=== PATIENT | female | born 1960 | race Hispanic/Latino ===

== ENCOUNTER 2017-02-11 07:04 | Day surgery (SDC) | payer SELFPAY ==
[~2017-02-11] VITALS: Ht 165.1 cm; Wt 83.5 kg
[~2017-02-11 07:04] MED LIST: ASPIRIN ADULT L81 MG PO; ASPIRIN CHEWABL81 MG PO; ASPIRIN EC81 MG PO; ATENOLOL25 MG PO; BACTRIM DS1 TAB OR; BP MEDICATION; CIPRO XR500 MG PO; DIABETIC PILL; GLIPIZIDE ER10 M1; GLIPIZIDE ER10 M1 PO; GLIPIZIDE10 MG PO; KEFLEX250 MG OR; LORTAB 5 OR; LORTAB 7.57.5 MG PO; LOSARTAN POT50 MG PO; MICARDIS40 MG OR; NAPROSYN375 MG PO; SIMVASTATIN20 MG PO; ULTRAM50 M1 PO; [UNRECOGNIZED DRUG - REMARK]
[2017-02-11] MEDS ORDERED: PERCOCET1 TA2 PO (09:10)
[2017-02-11 10:26] VITALS: BP 125/62
== END 2017-02-11 10:20 | disposition home or self-care (01) | DRG 419 ==
LOC: ORM 07:04
PROVIDERS: ATTEND Surgery
PROC: 0FT44ZZ Resection of Gallbladder, Percutaneous Endoscopic Approach (ICD-10-PCS; principal; 2017-02-11)
PROC: BF001ZZ Plain Radiography of Bile Ducts using Low Osmolar Contrast (ICD-10-PCS; 2017-02-11)
DX: K80.10 Calculus of gallbladder with chronic cholecystitis without obstruction (principal); I10 Essential (primary) hypertension; E11.9 Type 2 diabetes mellitus without complications
CPT/HCPCS: J2710; Q9967

== ENCOUNTER 2018-03-02 11:11 | Emergency (ER) | payer SELFPAY ==
[~2018-03-02] VITALS: Ht 165.1 cm; Wt 84.0 kg
[~2018-03-02 11:11] MED LIST changes: +PERCOCET1 TA2 PO
[2018-03-02] MEDS ORDERED: AUGMENTIN875TAB PO (11:43)
[2018-03-02 11:53] VITALS: BP 125/82
== END 2018-03-02 12:01 | disposition home or self-care (01) | DRG 605 ==
LOC: ED 11:11
DX: S61.257A Open bite of left little finger without damage to nail, initial encounter (principal); E11.9 Type 2 diabetes mellitus without complications; I10 Essential (primary) hypertension; W53.01XA Bitten by mouse, initial encounter; Y93.84 Activity, sleeping; Y92.009 Unspecified place in unspecified non-institutional (private) residence as the place of occurrence of the external cause

== ENCOUNTER 2018-05-16 08:20 | Emergency (ER) | payer SELFPAY ==
[~2018-05-16] VITALS: Ht 165.1 cm; Wt 79.4 kg
[~2018-05-16 08:20] MED LIST changes: +AUGMENTIN875TAB PO
[2018-05-16] MEDS ORDERED: TRAMADOL HYDROC50 MG PO (08:58)
[2018-05-16] MEDS ORDERED: NAPROSYN500 MG PO (08:58)
[2018-05-16 09:55] VITALS: BP 131/74
== END 2018-05-16 09:55 | disposition home or self-care (01) | DRG 605 ==
LOC: ED 08:20
DX: S80.02XA Contusion of left knee, initial encounter (principal); I10 Essential (primary) hypertension; E11.9 Type 2 diabetes mellitus without complications; W22.8XXA Striking against or struck by other objects, initial encounter

== ENCOUNTER 2018-10-03 15:42 | Observation (INO) | payer SELFPAY ==
[~2018-10-03] VITALS: Ht 165.1 cm; Wt 79.4 kg
[~2018-10-03 15:42] MED LIST changes: +NAPROSYN500 MG PO; +TRAMADOL HYDROC50 MG PO
--- NOTE | 2018-10-03 15:58 | NUR ---
EMS TO ER ROOM 15, TO BED
--- NOTE | 2018-10-03 16:15 | NUR ---
PT DENIES ANY CHEST PAIN AT THIS TIME AND REPORTS FEELING VERY HOT WHEN CP STARTED. PT AWARE OF PROBABLE PLAN OF CARE AND WAIT TIME. BILATERAL LS CLEAR. PT DENIES ANY NEEDS AT THIS TIME.
[2018-10-03 16:22] LABS: HEMATOCRIT 37.5 % (37.0-47.0); HEMOGLOBIN 12.8 g/dl (12.0-16.0); IMMATURE GRANULOCYTES 0.2 % (0.0-5.0); MEAN CELL VOLUME 91.9 fL CALC (80.0-100.0); MEAN CORPUSCULAR HGB 31.4 pG CALC (26.0-32.0); MEAN CORPUSCULAR HGB CONC 34.1 g/L CALC (32.0-36.0); NEUT# 2.59 thou/uL (2.00-7.15); RED BLOOD COUNT 4.08 mill/uL (4.20-5.60); RED CELL DISTRI WIDTH 12.4 % (11.5-15.5)
--- NOTE | 2018-10-03 17:00 | NUR ---
PT DENIES ANY PAIN AT THIS TIME. PT AWARE OF PENDING RESULTS AND WAIT TIME. CALL GAR[facility]AY WITHIN REACH.
[2018-10-03 17:10] LABS: ALBUMIN 3.7 g/dL (3.2-5.0); ALKALINE PHOSPHATASE 102 u/l (38-126); ANION GAP 12 (6-22 (CALC)); BILIRUBIN, TOTAL 0.7 mg/dL (0.0-1.4); BUN 11 mg/dL (7-17); BUN/CREATININE RATIO 27 (12-20 (CALC)); CARBON DIOXIDE 22 mmol/l (22-30); CHLORIDE 111 mmol/l (95-108); CREATININE 0.4 mg/dL (0.5-1.0); GFR > 60 ML/MIN (>=60 (CALC)); GFR FOR AFR.AMER. > 60 ML/MIN (>=60 (CALC)); POTASSIUM 4.1 mmol/l (3.5-5.1); SGOT/AST 23 u/l (14-36); SODIUM 141 mmol/l (137-146); TOTAL PROTEIN 6.9 g/dL (6.3-8.2)
[2018-10-03 17:25] LABS: MYOGLOBIN 16 ng/mL (0 - 62)
--- NOTE | 2018-10-03 17:52 | NUR ---
REPORT CALLED TO JORDYN JUSTICE.
--- NOTE | 2018-10-03 17:55 | NUR ---
Admission Note Report Given to: JORDYN JUSTICE Transported by: X Wheelchair Stretcher Transported with: X Nurse Transporter X Patent IV O2 X Human Resources Specialist
--- NOTE | 2018-10-03 18:30 | NUR ---
DR. SHAW CALLED AT THIS TIME. PT CONCERNED WITH HOME MEDS FOR BP AND DIABETES. ORDERS RECEIVED AT THIS TIME. TELE READING SR 80 WITH [facility]. PT UPDATED ON NEW ORDERS.
--- NOTE | 2018-10-03 18:30 | NUR ---
PT ARRIVES TO FLOOR VIA WHEELCHAIR IN STABLE CONDITION WITH STAFF. PT IS A&O x3. HUNGARIAN SPEAKING ONLY DAUGHTER HERE TO TRANSLATE. ASSESMENT COMPLETED AT THIS TIME(SEE INTERVENTIONS). LUNG SOUNDS CLEAR, HEART SOUNDS NORMAL, BOWEL SOUND ACTIVE, NO SWELLING OR EDEMA NOTED, SKIN IS INTACT. #20 IN THE RIGHT HAND FLUSHES WELL, NO REDNESS OR EDEMA. PT NOT HAVING ANY CHEST PAIN AT THIS TIME. PT COMPLAINING OF HEADACHE. PT ORIENTED TO ROOM AND CALL [facility] SYSTEM. PT APRECIATIVE AND ALL NEEDS MET. EATING DINNER AT THIS TIME. CALL [facility] IN REACH. WILL CONTINUE TO MONITOR.
[2018-10-03 18:31] VITALS: BP 163/93
--- NOTE | 2018-10-03 19:54 | NUR ---
REPORT GIVEN BY RESHMA COBB. PATIENT AWAKE AND TALKING ON THE PHONE. RESP EVEN AND UNLABORED. NO S/S OF DISTRES NOTED. PLAN OF CARE DISCUSSED. PATIENT INFORMED TO CALL WITH ANY QUESTIONS OR CONCERNS.
--- NOTE | 2018-10-03 23:48 | NUR ---
PATIENT RESTING WITH EYES CLOSED. RESP EVEN AND UNLABORED. NO S/S OF DISTRESS NOTED.
[2018-10-04 00:10] VITALS: BP 120/74
--- NOTE | 2018-10-04 04:01 | NUR ---
PATIENT HAS HAD NO C/O OF CHEST PAIN DURING THE NIGHT. RESTING WITH EYES CLOSED. RESP EVEN AND UNLABORED. NO S/S OF DISTRESS NOTED.
[2018-10-04 04:38] VITALS: BP 118/73
[2018-10-04 07:43] VITALS: BP 133/81
--- NOTE | 2018-10-04 07:45 | NUR ---
PT RESTING IN BED, NO SIGNS OF DISTRESS NOTED, RESP EVEN AND UNLABORED. PT ALERT AND ORIENTED X3, NO EDEMA. PT DENIES CP AT THIS TIME. EMS SITE TO [facility] FLUSHED WELL. DISCUSSED POC, PT IN AGREEMENT. INFORMED PT THAT HER MEDS WILL BE GIVEN TODAY, PT WAS WORRIED TO EAT BREAKFAST DUE TO HER BS 115, EDUCATED PT ON DM, AND ACCUCHECKS. ASSESSMENT COMPLETED AT THIS TIME. CALL LIGHT IN REACH, CONTINUE TO MONITOR.
[2018-10-04 09:46] LABS: CHOLESTEROL HDL RATIO 2.9 (<4.4 (CALC))
[2018-10-04] MEDS ORDERED: ASPIRIN CHEWABL81 MG PO (10:08)
--- NOTE | 2018-10-04 10:25 | NUR ---
PT RESTING IN BED, DISCUSSED PNEUMONIA VACC, PT IN AGREEMENT. IM INJ GIVEN TO R DELTOID. PT TOLERATED WELL, BANDAID APPLIED. PT VOICES NO NEEDS OR COMPLAINTS AT THIS TIME. CALL LIGHT IN REACH,CONTINUE TO MONITOR.
[2018-10-04 12:00] VITALS: BP 116/78
--- NOTE | 2018-10-04 13:00 | NUR ---
DISCUSSED DISCHARGE INSTRUCTIONS WITH PT IN [facility] PER STUDIO DIRECTOR. PT VERBALIZED UNDERSTANDING. IV REMOVED, CATHETER INTACT. DISCHARGE PAPERS SIGNED. PT GETTING DRESSED.
--- NOTE | 2018-10-04 13:07 | NUR ---
Discharge instructions given. Patient verbalizes understanding of same. Discharged in stable condition via Wheelchair to Home with family. All belongings sent with pt.
== END 2018-10-04 13:07 | disposition home or self-care (01) | DRG 313 ==
LOC: ED 15:42 → ED-I 17:06 → ED 17:34 → MS2 17:35
PROVIDERS: Emergency Medicine; Nurse Practitioner Family; ADMIT Internal Medicine; ATTEND Internal Medicine
PROC: 3E0234Z Introduction of Serum, Toxoid and Vaccine into Muscle, Percutaneous Approach (ICD-10-PCS; principal; 2018-10-04)
DX: R07.9 Chest pain, unspecified (principal); M25.512 Pain in left shoulder; I10 Essential (primary) hypertension; E11.9 Type 2 diabetes mellitus without complications; X50.0XXA Overexertion from strenuous movement or load, initial encounter; Y93.89 Activity, other specified; Y92.89 Other specified places as the place of occurrence of the external cause; Y99.0 Civilian activity done for income or pay; Z79.84 Long term (current) use of oral hypoglycemic drugs; Z23 Encounter for immunization
CPT/HCPCS: G0378

== ENCOUNTER 2018-10-29 12:48 | Emergency (ER) | payer SELFPAY ==
[~2018-10-29] VITALS: Ht 165.1 cm; Wt 50.0 kg
[2018-10-29 13:36] LABS: HEMATOCRIT 40.3 % (37.0-47.0); IMMATURE GRANULOCYTES 0.2 % (0.0-5.0); MEAN CELL VOLUME 90.2 fL CALC (80.0-100.0); MEAN CORPUSCULAR HGB 31.3 pG CALC (26.0-32.0); MEAN CORPUSCULAR HGB CONC 34.7 g/L CALC (32.0-36.0); NEUT# 2.66 thou/uL (2.00-7.15); RED BLOOD COUNT 4.47 mill/uL (4.20-5.60); RED CELL DISTRI WIDTH 12.1 % (11.5-15.5)
[2018-10-29 13:38] LABS: URINE BILIRUBIN - DIPSTICK NEGATIVE (NEGATIVE); URINE BLOOD DIPSTICK MODERATE (NEGATIVE); URINE COLOR YELLOW; URINE GLUCOSE - DIPSTICK 100 mg/dL (NEGATIVE); URINE KETONE NEGATIVE (NEGATIVE); URINE LEUK ESTERASE NEGATIVE (NEGATIVE); URINE NITRITE - DIPSTICK NEGATIVE (Negative); URINE PROTEIN - DIPSTICK NEGATIVE (NEG-TRACE); URINE SPECIFIC GRAVITY 1.015; URINE UROBILINOGEN - DIPSTICK 0.2 E.U./dL (0.2)
[2018-10-29 13:42] LABS: URINE CLARITY CLEAR
[2018-10-29 13:48] LABS: URINE SQUAMOUS EPITHELIAL CELL FEW EPI/hpf (0-FEW); URINE WBC 0-2 WBC/hpf (0-5)
[2018-10-29 13:56] LABS: ALBUMIN 4.2 g/dL (3.2-5.0); ALKALINE PHOSPHATASE 107 u/l (38-126); ANION GAP 15 (6-22 (CALC)); BILIRUBIN, TOTAL 1.4 mg/dL (0.0-1.4); BUN 10 mg/dL (7-17); BUN/CREATININE RATIO 23 (12-20 (CALC)); CARBON DIOXIDE 25 mmol/l (22-30); CHLORIDE 104 mmol/l (95-108); CREATININE 0.4 mg/dL (0.5-1.0); GFR > 60 ML/MIN (>=60 (CALC)); GFR FOR AFR.AMER. > 60 ML/MIN (>=60 (CALC)); LIPASE 87 u/l (23-300); POTASSIUM 3.8 mmol/l (3.5-5.1); SODIUM 140 mmol/l (137-146)
[2018-10-29 13:57] LABS: SGOT/AST 44 u/l (14-36)
[2018-10-29 15:55] VITALS: BP 150/82
== END 2018-10-29 15:55 | disposition home or self-care (01) | DRG 392 ==
LOC: ED 12:48
PROVIDERS: Family Medicine
DX: R10.31 Right lower quadrant pain (principal); R10.30 Lower abdominal pain, unspecified; R31.9 Hematuria, unspecified
CPT/HCPCS: Q9967

== ENCOUNTER 2019-08-06 15:45 | Observation (INO) | payer SELFPAY ==
[~2019-08-06] VITALS: Ht 165.1 cm; Wt 83.9 kg
[2019-08-06 16:03] LABS: HEMATOCRIT 37.8 % (37.0-47.0); HEMOGLOBIN 13.4 g/dl (12.0-16.0); IMMATURE GRANULOCYTES 0.2 % (0.0-5.0); MEAN CELL VOLUME 91.1 fL CALC (80.0-100.0); MEAN CORPUSCULAR HGB 32.3 pG CALC (26.0-32.0); MEAN CORPUSCULAR HGB CONC 35.4 g/L CALC (32.0-36.0); NEUT# 2.1 thou/uL (2.00-7.15); RED BLOOD COUNT 4.15 mill/uL (4.20-5.60); RED CELL DISTRI WIDTH 12.9 % (11.5-15.5)
[2019-08-06 16:16] LABS: ALBUMIN 4.3 g/dL (3.2-5.0); ALKALINE PHOSPHATASE 163 u/l (38-126); ANION GAP 16 (6-22 (CALC)); BILIRUBIN, TOTAL 0.5 mg/dL (0.0-1.4); BUN 14 mg/dL (7-17); BUN/CREATININE RATIO 35 (12-20 (CALC)); CARBON DIOXIDE 23 mmol/l (22-30); CHLORIDE 106 mmol/l (95-108); CREATININE 0.4 mg/dL (0.5-1.0); GFR > 60 ML/MIN (>=60 (CALC)); GFR FOR AFR.AMER. > 60 ML/MIN (>=60 (CALC)); LIPASE 140 u/l (23-300); POTASSIUM 4.2 mmol/l (3.5-5.1); SGOT/AST 41 u/l (14-36); SODIUM 141 mmol/l (137-146); TOTAL PROTEIN 8.2 g/dL (6.3-8.2)
[2019-08-06 17:21] LABS: URINE BILIRUBIN - DIPSTICK NEGATIVE (NEGATIVE); URINE BLOOD DIPSTICK SMALL (NEGATIVE); URINE COLOR YELLOW; URINE GLUCOSE - DIPSTICK NEGATIVE (NEGATIVE); URINE KETONE NEGATIVE (NEGATIVE); URINE LEUK ESTERASE TRACE (NEGATIVE); URINE NITRITE - DIPSTICK NEGATIVE (Negative); URINE PROTEIN - DIPSTICK NEGATIVE (NEG-TRACE); URINE UROBILINOGEN - DIPSTICK 0.2 E.U./dL (0.2)
[2019-08-06 17:40] LABS: URINE SQUAMOUS EPITHELIAL CELL FEW EPI/hpf (0-FEW); URINE WBC 0-2 WBC/hpf (0-5)
[2019-08-06 18:04] VITALS: BP 145/87
[2019-08-07 00:04] VITALS: BP 133/76
[2019-08-07 05:08] VITALS: BP 140/79
[2019-08-07 05:19] LABS: HEMATOCRIT 38.3 % (37.0-47.0); MEAN CELL VOLUME 92.1 fL CALC (80.0-100.0); MEAN CORPUSCULAR HGB 31.3 pG CALC (26.0-32.0); MEAN CORPUSCULAR HGB CONC 33.9 g/L CALC (32.0-36.0); RED BLOOD COUNT 4.16 mill/uL (4.20-5.60); RED CELL DISTRI WIDTH 12.8 % (11.5-15.5)
[2019-08-07 05:37] LABS: ANION GAP 14 (6-22 (CALC)); BUN 11 mg/dL (7-17); BUN/CREATININE RATIO 29 (12-20 (CALC)); CARBON DIOXIDE 24 mmol/l (22-30); CHLORIDE 109 mmol/l (95-108); CREATININE 0.4 mg/dL (0.5-1.0); GFR > 60 ML/MIN (>=60 (CALC)); GFR FOR AFR.AMER. > 60 ML/MIN (>=60 (CALC)); POTASSIUM 4.4 mmol/l (3.5-5.1); SODIUM 142 mmol/l (137-146)
[2019-08-07 07:44] VITALS: BP 137/91
== END 2019-08-07 13:00 | disposition home or self-care (01) | DRG 918 ==
LOC: ED 15:45 → ED-I 16:24 → ED 16:24 → MS2 16:57
PROVIDERS: Family Medicine; ADMIT Internal Medicine; ATTEND Internal Medicine
DX: T60.3X1A Toxic effect of herbicides and fungicides, accidental (unintentional), initial encounter (principal); J02.9 Acute pharyngitis, unspecified; I10 Essential (primary) hypertension; E11.9 Type 2 diabetes mellitus without complications; Z79.84 Long term (current) use of oral hypoglycemic drugs
CPT/HCPCS: G0378

== ENCOUNTER 2022-03-10 08:09 | Emergency (ER) | payer SELFPAY ==
[2022-03-10] VITALS (9 sets, daily range): BP systolic 128–160; BP diastolic 75–97
[~2022-03-10] VITALS: Ht 165.1 cm; Wt 70.0 kg
[2022-03-10 09:08] LABS: HEMATOCRIT 41.5 % (37.0-47.0); HEMOGLOBIN 13.9 g/dl (12.0-16.0); IMMATURE GRANULOCYTES 0.2 % (0.0-5.0); MEAN CELL VOLUME 95.6 fL CALC (80.0-100.0); MEAN CORPUSCULAR HGB CONC 33.5 g/dL CAL (32.0-36.0); NEUT# 2.28 thou/uL (2.00-7.15); RED BLOOD COUNT 4.34 mill/uL (4.20-5.60); RED CELL DISTRI WIDTH 13.3 % (11.5-15.5)
[2022-03-10 09:09] LABS: GFR > 60 ML/MIN (>=60 (CALC)); GFR FOR AFR.AMER. > 60 ML/MIN (>=60 (CALC))
[2022-03-10 09:21] LABS: URINE BILIRUBIN - DIPSTICK NEGATIVE (NEGATIVE); URINE BLOOD DIPSTICK TRACE-INTACT (NEGATIVE); URINE COLOR YELLOW; URINE GLUCOSE - DIPSTICK NEGATIVE (NEGATIVE); URINE KETONE NEGATIVE (NEGATIVE); URINE LEUK ESTERASE NEGATIVE (NEGATIVE); URINE PH 5.5 (4.5-8.0); URINE PROTEIN - DIPSTICK NEGATIVE (NEG-TRACE); URINE SPECIFIC GRAVITY 1.015; URINE UROBILINOGEN - DIPSTICK 0.2 E.U./dL (0.2)
[2022-03-10 09:22] LABS: URINE NITRITE - DIPSTICK NEGATIVE (Negative)
[2022-03-10 09:25] LABS: ALBUMIN 4.2 g/dL (3.2-5.0); ALKALINE PHOSPHATASE 136 u/l (38-126); ANION GAP 15 (6-22 (CALC)); BUN 10 mg/dL (8-23); BUN/CREATININE RATIO 21 (12-20 (CALC)); CARBON DIOXIDE 21 mmol/l (22-30); CHLORIDE 107 mmol/l (95-108); CREATININE 0.5 mg/dL (0.5-1.0); GFR > 60 ML/MIN (>=60 (CALC)); GFR FOR AFR.AMER. > 60 ML/MIN (>=60 (CALC)); LIPASE 119 u/l (23-300); SGOT/AST 37 u/l (9-36); SODIUM 139 mmol/l (137-146); TOTAL PROTEIN 8.6 g/dL (6.3-8.2)
[2022-03-10 09:43] LABS: BILIRUBIN, TOTAL 0.9 mg/dL (0.0-1.4)
== END 2022-03-10 10:35 | disposition home or self-care (01) | DRG 392 ==
LOC: ED 08:09
PROVIDERS: Family Medicine
DX: R10.30 Lower abdominal pain, unspecified (principal); D25.9 Leiomyoma of uterus, unspecified; I10 Essential (primary) hypertension; E11.9 Type 2 diabetes mellitus without complications; I25.10 Atherosclerotic heart disease of native coronary artery without angina pectoris; Z79.84 Long term (current) use of oral hypoglycemic drugs; Z20.822 Contact with and (suspected) exposure to COVID-19
CPT/HCPCS: Q9967

== ENCOUNTER 2022-10-27 14:28 | Emergency (ER) | payer SELFPAY ==
[~2022-10-27] VITALS: Ht 165.1 cm; Wt 70.0 kg
[2022-10-27 14:37] VITALS: BP 136/79
[2022-10-27 14:45] VITALS: BP 133/79
[2022-10-27 15:01] VITALS: BP 126/67
[2022-10-27 15:15] VITALS: BP 116/69
[2022-10-27 15:58] LABS: HEMATOCRIT 36.6 % (37.0-47.0); HEMOGLOBIN 12.3 g/dl (12.0-16.0); MEAN CELL VOLUME 92.7 fL CALC (80.0-100.0); MEAN CORPUSCULAR HGB 31.1 pG CALC (26.0-32.0); MEAN CORPUSCULAR HGB CONC 33.6 g/dL CAL (32.0-36.0); NEUT# 2.01 thou/uL (2.00-7.15); RED BLOOD COUNT 3.95 mill/uL (4.20-5.60); RED CELL DISTRI WIDTH 12.7 % (11.5-15.5)
[2022-10-27 16:00] LABS: ALBUMIN 4.2 g/dL (3.2-5.0); ALKALINE PHOSPHATASE 97 u/l (38-126); ANION GAP 13 (6-22 (CALC)); BILIRUBIN, TOTAL 0.7 mg/dL (0.0-1.4); BUN 25 mg/dL (8-23); BUN/CREATININE RATIO 32 (12-20 (CALC)); CARBON DIOXIDE 23 mmol/l (22-30); CHLORIDE 108 mmol/l (95-108); CREATININE 0.8 mg/dL (0.5-1.0); GFR FOR AFR.AMER. > 60 ML/MIN (>=60 (CALC)); GFR OTHER RACES > 60 ML/MIN (>=60 (CALC)); POTASSIUM 3.9 mmol/l (3.5-5.1); SGOT/AST 26 u/l (9-36); SODIUM 140 mmol/l (137-146); TOTAL PROTEIN 7.5 g/dL (6.3-8.2)
[2022-10-27 17:16] VITALS: BP 116/69
== END 2022-10-27 17:28 | disposition home or self-care (01) | DRG 103 ==
LOC: ED 14:28
PROVIDERS: Family Medicine
DX: R51.9 Headache, unspecified (principal)